=== PATIENT | female | born 1930 ===

== ENCOUNTER 2016-12-26 21:51 | Emergency (ER) | payer MEDICARE, MEDICAID ==
[2016-12-26 22:04] VITALS: BP 125/56; PULSE 67; RESP 16; TEMP 98.3; O2SAT 100
--- NOTE | 2016-12-26 22:27 | ED PDOC ---
HPI: Trauma/Fall - HPI Time Seen by Provider: 12/26/16 22:07 Chief Complaint (Nursing): Back Pain Chief Complaint (Provider): fall History Per: Patient, EMS, Family Injury Occurred (Timing): Just Before Arrival Additional History Per: Patient, Family Additional Complaint(s): 86 y/o female history of dementia, hypertension brought in by EMS from [facility] for eval of fall prior to arrival. As per daughter, she was informed that patient tried to walk back to her room by the nurses station and fell, hitting back of head. No LOC. Patient complaining of pain to back of head, and EMS noted patient to be complaining of pain to back during ambulance ride. Denies dizziness, nausea/vomiting, extremity numbness/weakness , chest pain, shortness of breath, leg pain. Past Medical History Reviewed: Historical Data, Nursing Documentation, Vital Signs Vital Signs: Last Vital Signs Temp 98.3 F 12/26/16 22:00 Pulse 67 12/26/16 22:00 Resp 16 12/26/16 22:00 BP 125/56 L 12/26/16 22:00 Pulse Ox 100 12/26/16 22:00 - Medical History PMH: Alzheimer's Disease, Arthritis, Dementia, HTN Denies: Anemia, Anxiety, Bipolar Disorder, Crohn's Disease, Depression, Diverticulitis, Fractures, Gastritis, Gall Bladder Disease, HIV, Hyperthyroidism , Hypothyroidism, Kidney Stones, Migraine, Osteoporosis, Pancreatitis, Paranoia , Post Traumatic Stress Disorder, Chronic Kidney Disease, Rheumatoid Arthritis, Schizophrenia, Seizures, Sickle Cell Disease, Sexually Transmitted Disease, TIA - Surgical History Surgical History: Denies: Appendectomy, CABG, Carotid Endarterectomy, Cholecystectomy, Coronary Stent, Tonsillectomy - Family History Family History: States: Unknown Family Hx - Home Medications Home Medications: Ambulatory Orders Medication Instructions Recorded Allopurinol [Zyloprim] 100 mg PO BID 11/15/16 Donepezil [Aricept] 10 mg PO HS 11/15/16 Ergocalciferol (Vitamin D2) 50,000 unit PO SUN 11/15/16 [Vitamin D2] Ferrous Sulfate [Feosol] 325 mg PO BID 11/15/16 Galantamine HBr [Galantamine ER] 16 mg PO DAILY 11/15/16 Lisinopril [Zestril] 2.5 mg PO DAILY 11/15/16 Memantine HCl [Namenda Xr] 28 mg PO DAILY 11/15/16 Sertraline [Zoloft] 50 mg PO DAILY 11/15/16 Sevelamer [Renagel] 400 mg PO BID 12/26/16 - Allergies Allergies/Adverse Reactions: Allergies Allergy/AdvReac Type Severity Reaction Status Date / Time No Known Allergies Allergy Verified 12/26/16 22:45 Review of Systems ROS Statement: Except As Marked, All Systems Reviewed And Found Negative Musculoskeletal: Positive for: Back Pain Neurological: Positive for: Headache Physical Exam - Reviewed Nursing Documentation Reviewed: Yes Vital Signs Reviewed: Yes - Physical Exam Appears: Positive for: Well, Non-toxic, No Acute Distress Head Exam: Positive for: NORMAL INSPECTION. Negative for: ATRAUMATIC (tender to palpate left parietal scalp; no skin break, hematoma noted) Eye Exam: Positive for: Normal appearance, EOMI, PERRL ENT: Positive for: Normal ENT Inspection Cardiovascular/Chest: Positive for: Regular Rate, Rhythm Respiratory: Positive for: Normal Breath Sounds Gastrointestinal/Abdominal: Positive for: Normal Exam Back: Positive for: Vertebral Tenderness (upper tspine. No bony deformity. No lspine tenderness), Muscle Spasm (left tspine paraspinals). Negative for: L CVA Tenderness, R CVA Tenderness, Decreased ROM Extremity: Positive for: Normal ROM. Negative for: Tenderness, Deformity, Swelling Neurologic/Psych: Positive for: Alert, Oriented (x2;baseline as per daughter) - ECG O2 Sat by Pulse Oximetry: 100 - Progress ED Course And Treament: CT head, CT cspine, CT chest, PO tylenol EXAM: CT Head Without Intravenous Contrast CLINICAL HISTORY: 86 years old, female; Injury or trauma; Fall; Initial encounter; Concussion / head injury; Consciousness not specified; Injury date: 12-26-2016; Additional info: Fall, head injury. Sent phy. Doc. With request TECHNIQUE: Axial computed tomography images of the head/brain without intravenous contrast. This CT exam was performed using one or more of the following dose reduction techniques: automated exposure control, adjustment of the mA and/or kV according to patient size, and/or use of iterative reconstruction technique. Coronal and sagittal reformatted images were created and reviewed. COMPARISON: CT - HEAD W/O CONTRAST 11/15/2016 1:41:52 PM FINDINGS: Brain: No acute intracranial hemorrhage. Age-appropriate periventricular white matter disease. No edema. Ventricles: Age-appropriate ventriculomegaly. Bones: No acute displaced fracture. Sinuses: Unremarkable as visualized. No acute sinusitis. Mastoid air cells: Unremarkable as visualized. No mastoid effusion. IMPRESSION: No acute intracranial hemorrhage, or suspicious mass effect. EXAM: CT Cervical Spine Without Intravenous Contrast CLINICAL HISTORY: 86 years old, female; Injury or trauma; Fall; Initial encounter; Blunt trauma; Injury date: 12-26-2016; Additional info: Fall. Sent phy. Doc. TECHNIQUE: Axial computed tomography images of the cervical spine without intravenous contrast. This CT exam was performed using one or more of the following dose reduction techniques : automated exposure control, adjustment of the mA and/or kV according to patient size, and/ or use of iterative reconstruction technique. Coronal and sagittal reformatted images were created and reviewed. COMPARISON: CT - CERVICAL SPINE W/O CONTRAST 11/15/2016 1:45:00 PM FINDINGS: Vertebrae: No acute fracture. Alignment: Preservation of the curvature of the cervical spine. Discs/spinal canal/neural foramina: No acute findings. Moderate degenerative series, with osteophyte formation, disc space narrowing, endplate changes and vacuum phenomenon. Thickening of the transverse ligament is suspected with accompanying synovial hypertrophy. Soft tissues: Symmetric Lung apices: The visualized lung apices are clear. IMPRESSION: Degenerative disease, without acute fracture EXAM: CT Chest Without Intravenous Contrast CLINICAL HISTORY: 86 years old, female; Injury or trauma; Fall; Initial encounter; Blunt trauma ( contusions or hematomas); Injury date: 12-26-2016; Additional info: Fall, mid/left-sided back pain TECHNIQUE: Axial computed tomography images of the chest without intravenous contrast. This CT exam was performed using one or more of the following dose reduction techniques: automated exposure control, adjustment of the mA and/or kV according to patient size, and/or use of iterative reconstruction technique. Coronal and sagittal reformatted images were created and reviewed. COMPARISON: No relevant prior studies available. FINDINGS: Lungs: No mass. No consolidation. Pleural spaces: No significant effusion. No pneumothorax or hemothorax. Heart: Cardiomegaly, without significant pericardial effusion. Vasculature: The great vessels are intact. No aneurysmal dilatation of the thoracic aortic. Calcified atherosclerotic disease. Lymph nodes: Scattered lymph nodes within the mediastinum and supraclavicular region, all nonpathologically enlarged, a nonspecific finding. Bones: No acute fractures within either the sternum, ribs or thoracic vertebral bodies. No scapular or clavicular fractures are noted. A moderate hiatal hernia is present, with herniation of the gastric fundus into the left hemithorax with adjacent compressive atelectasis. IMPRESSION: No significant intrathoracic injury, as detailed above. Multiple nonacute findings, as detailed above. On re-eval, patient escorted to bedside commode without complaints of pain. Patient stable for discharge and to be transported back to detention. Advised Tylenol/Ibuprofen PRN pain. Return to ED for worsening/concerning symptoms. Disposition - Clinical Impression Clinical Impression: Head injury, Fall in elderly patient, Back pain - Patient ED Disposition Is Patient to be Admitted: No Counseled Patient/Family Regarding: Studies Performed, Diagnosis, Need For Followup - Disposition Disposition: Routine/Home Disposition Time: 01:04 Condition: STABLE Additional Instructions: Take Tylenol or Ibuprofen as directed, as needed for pain. Return to ED for worsening/concerning symptoms. Instructions: Fall Prevention for Older Adults (ED), Head Injury (ED), Back Pain (ED)
--- NOTE | 2016-12-26 23:41 | CT ---
EXAM: CT Head Without Intravenous Contrast CLINICAL HISTORY: 86 years old, female; Injury or trauma; Fall; Initial encounter; Concussion / head injury; Consciousness not specified; Injury date: 12-26-2016; Additional info: Fall, head injury. Sent phy. Doc. With request TECHNIQUE: Axial computed tomography images of the head/brain without intravenous contrast. This CT exam was performed using one or more of the following dose reduction techniques: automated exposure control, adjustment of the mA and/or kV according to patient size, and/or use of iterative reconstruction technique. Coronal and sagittal reformatted images were created and reviewed. COMPARISON: CT - HEAD W/O CONTRAST 11/15/2016 1:41:52 PM FINDINGS: Brain: No acute intracranial hemorrhage. Age-appropriate periventricular white matter disease. No edema. Ventricles: Age-appropriate ventriculomegaly. Bones: No acute displaced fracture. Sinuses: Unremarkable as visualized. No acute sinusitis. Mastoid air cells: Unremarkable as visualized. No mastoid effusion. IMPRESSION: No acute intracranial hemorrhage, or suspicious mass effect.
--- NOTE | 2016-12-26 23:50 | CT ---
EXAM: CT Cervical Spine Without Intravenous Contrast CLINICAL HISTORY: 86 years old, female; Injury or trauma; Fall; Initial encounter; Blunt trauma; Injury date: 12-26-2016; Additional info: Fall. [facility] phy. Doc. TECHNIQUE: Axial computed tomography images of the cervical spine without intravenous contrast. This CT exam was performed using one or more of the following dose reduction techniques: automated exposure control, adjustment of the mA and/or kV according to patient size, and/or use of iterative reconstruction technique. Coronal and sagittal reformatted images were created and reviewed. COMPARISON: CT - CERVICAL SPINE W/O CONTRAST 11/15/2016 1:45:00 PM FINDINGS: Vertebrae: No acute fracture. Alignment: Preservation of the curvature of the cervical spine. Discs/spinal canal/neural foramina: No acute findings. Moderate degenerative series, with osteophyte formation, disc space narrowing, endplate changes and vacuum phenomenon. Thickening of the transverse ligament is suspected with accompanying synovial hypertrophy. Soft tissues: Symmetric Lung apices: The visualized lung apices are clear. IMPRESSION: Degenerative disease, without acute fracture.
--- NOTE | 2016-12-26 23:55 | CT ---
EXAM: CT Chest Without Intravenous Contrast CLINICAL HISTORY: 86 years old, female; Injury or trauma; Fall; Initial encounter; Blunt trauma (contusions or hematomas); Injury date: 12-26-2016; Additional info: Fall, mid/left-sided back pain TECHNIQUE: Axial computed tomography images of the chest without intravenous contrast. This CT exam was performed using one or more of the following dose reduction techniques: automated exposure control, adjustment of the mA and/or kV according to patient size, and/or use of iterative reconstruction technique. Coronal and sagittal reformatted images were created and reviewed. COMPARISON: No relevant prior studies available. FINDINGS: Lungs: No mass. No consolidation. Pleural spaces: No significant effusion. No pneumothorax or hemothorax. Heart: Cardiomegaly, without significant pericardial effusion. Vasculature: The great vessels are intact. No aneurysmal dilatation of the thoracic aortic. Calcified atherosclerotic disease. Lymph nodes: Scattered lymph nodes within the mediastinum and supraclavicular region, all non-pathologically enlarged, a nonspecific finding. Bones: No acute fractures within either the sternum, ribs or thoracic vertebral bodies. No scapular or clavicular fractures are noted. A moderate hiatal hernia is present, with herniation of the gastric fundus into the left hemithorax with adjacent compressive atelectasis. IMPRESSION: No significant intrathoracic injury, as detailed above. Multiple nonacute findings, as detailed above.
== END 2016-12-27 01:30 | disposition home or self-care (01) ==
LOC: H.ER 21:51
DX: S09.90XA Unspecified injury of head, initial encounter (principal); M54.9 Dorsalgia, unspecified; W19.XXXA Unspecified fall, initial encounter; Y92.198 Other place in other specified residential institution as the place of occurrence of the external cause

== ENCOUNTER 2017-04-20 04:03 | Emergency (ER) | payer MEDICARE, MEDICAID ==
[2017-04-20 04:26] VITALS: RESP 16
--- NOTE | 2017-04-20 04:36 | ED PDOC ---
HPI: Trauma/Fall - HPI Time Seen by Provider: 04/20/17 04:08 Chief Complaint (Nursing): Trauma Chief Complaint (Provider): Referral from [facility] History Per: Patient History/Exam Limitations: other (dementia) Location Of Injury: Posterior: Head Additional History Per: EMS, [facility] Additional Complaint(s): 87 y/o female was brought to the ED by EMS with a history of depression, gout, recurrent falls, and dementia. She was referred after witnessed fall from [facility] in [facility]. Patient fell, hit her head, but did not lose consciousness. There is noted swelling and slight bleeding to back of head. PMD: Joanna Araujo Casanova Past Medical History Vital Signs: Last Vital Signs Temp 97.9 F 04/20/17 04:09 Pulse 63 04/20/17 04:09 Resp 16 04/20/17 04:09 BP 127/65 04/20/17 04:09 Pulse Ox 100 04/20/17 04:09 - Medical History PMH: Alzheimer's Disease, Arthritis, Dementia, Depression, HTN Denies: Anemia, Anxiety, Bipolar Disorder, Crohn's Disease, Diverticulitis, Fractures, Gastritis, Gall Bladder Disease, HIV, Hyperthyroidism, Hypothyroidism , Kidney Stones, Migraine, Osteoporosis, Pancreatitis, Paranoia, Post Traumatic Stress Disorder, Chronic Kidney Disease, Rheumatoid Arthritis, Schizophrenia, Seizures, Sickle Cell Disease, Sexually Transmitted Disease, TIA Other PMH: Gout - Surgical History Surgical History: Denies: Appendectomy, CABG, Carotid Endarterectomy, Cholecystectomy, Coronary Stent, Tonsillectomy - Family History Family History: States: Unknown Family Hx - Living Arrangements Living Arrangements: [facility] - Social History Current smoker - smoking cessation education provided: No Alcohol: None Drugs: Denies - Home Medications Home Medications: Ambulatory Orders Medication Instructions Recorded Allopurinol [Zyloprim] 100 mg PO BID 11/15/16 Donepezil [Aricept] 10 mg PO HS 11/15/16 Ergocalciferol (Vitamin D2) 50,000 unit PO SUN 11/15/16 [Vitamin D2] Ferrous Sulfate [Feosol] 325 mg PO BID 11/15/16 Galantamine HBr [Galantamine ER] 16 mg PO DAILY 11/15/16 Lisinopril [Zestril] 2.5 mg PO DAILY 11/15/16 Memantine HCl [Namenda Xr] 28 mg PO DAILY 11/15/16 Sertraline [Zoloft] 50 mg PO DAILY 11/15/16 Sevelamer [Renagel] 400 mg PO BID 12/26/16 - Allergies Allergies/Adverse Reactions: Allergies Allergy/AdvReac Type Severity Reaction Status Date / Time No Known Allergies Allergy Verified 12/26/16 22:45 Review of Systems Review Of Systems: ROS cannot be obtained secondary to pt's inabilty to answer questions. Physical Exam - Reviewed Nursing Documentation Reviewed: Yes Vital Signs Reviewed: Yes - Physical Exam Appears: Positive for: Non-toxic, No Acute Distress Head Exam: Positive for: NORMOCEPHALIC. Negative for: ATRAUMATIC Skin: Positive for: Normal Color (with abrasion to occiput with trace dry blood and surrounding mild edema), Warm, Dry Eye Exam: Positive for: EOMI, Normal appearance, PERRL ENT: Positive for: Normal ENT Inspection Neck: Positive for: Normal, Painless ROM Cardiovascular/Chest: Positive for: Regular Rate, Rhythm. Negative for: Murmur Respiratory: Positive for: Normal Breath Sounds. Negative for: Respiratory Distress Gastrointestinal/Abdominal: Positive for: Normal Exam, Bowel Sounds, Soft. Negative for: Tenderness Back: Positive for: Normal Inspection. Negative for: L CVA Tenderness, R CVA Tenderness, Vertebral Tenderness Extremity: Positive for: Normal ROM. Negative for: Pedal Edema, Deformity Neurologic/Psych: Positive for: Alert (unable to answer questions) - ECG O2 Sat by Pulse Oximetry: 100 (RA) Pulse Ox Interpretation: Normal Medical Decision Making Medical Decision Making: Time: 4:15 Initial Impression: 87 y/o female with status post head injury post fall Initial Plan: --CT Head w/o Contrast --Tylenol --Adacel Time: 5:06 CT HEAD W/O CONTRAST FINDINGS: Brain: Cerebral and cerebellar volume loss. Patchy hypodensity is seen in the periventricular and subcortical white matter. No hemorrhage. No edema. Ventricles: Prominent ventricles. Bones/joints: Unremarkable. No acute fracture. Soft tissues: Unremarkable. Sinuses: Left sphenoid sinus mucus retention cysts and/or polyps. Mastoid air cells: Unremarkable. No mastoid effusion. IMPRESSION: No evidence of an acute intracranial hemorrhage, midline shift or mass effect is identified. Time: 6:00 Clinical Impression: Head injury, scalp abrasion --Patient is medically stable for discharge. --Counseling was provided and all questions were answered regarding diagnosis and need for follow up with PMD. There is agreement to discharge plan. Return if symptoms persist or worsen. Scribe Attestation: Documented by Thony Tierney, acting as a scribe for Richard Holman MD Provider Scribe Attestation: All medical record entries made by the Scribe were at my direction and personally dictated by me. I have reviewed the chart and agree that the record accurately reflects my personal performance of the history, physical exam, medical decision making, and the department course for this patient. I have also personally directed, reviewed, and agree with the discharge instructions and disposition. Disposition - Clinical Impression Clinical Impression: Fall in elderly patient, Head injury, Abrasion - Patient ED Disposition Is Patient to be Admitted: No Counseled Patient/Family Regarding: Studies Performed, Diagnosis, Need For Followup - Disposition Disposition: Routine/Home Disposition Time: 06:00 Condition: STABLE Instructions: Fall Prevention for Older Adults (ED), Head Injury (ED) Forms: [employer] (Hungarian)
--- NOTE | 2017-04-20 05:06 | CT ---
EXAM: CT Head Without Intravenous Contrast CLINICAL HISTORY: 87 years old, female; Injury or trauma; Fall; Initial encounter; Abrasion; Scalp; Additional info: Head injury TECHNIQUE: Axial computed tomography images of the head/brain without intravenous contrast. All CT scans at this facility use one or more dose reduction techniques, viz.: automated exposure control; ma/kV adjustment per patient size (including targeted exams where dose is matched to indication; i.e. head); or iterative reconstruction technique. 300 images are submitted.Sagittal and coronal MPR reformatted images are submitted. COMPARISON: No relevant prior studies available. FINDINGS: Brain: Cerebral and cerebellar volume loss. Patchy hypodensity is seen in the periventricular and subcortical white matter. No hemorrhage. No edema. Ventricles: Prominent ventricles. Bones/joints: Unremarkable. No acute fracture. Soft tissues: Unremarkable. Sinuses: Left sphenoid sinus mucus retention cysts and/or polyps. Mastoid air cells: Unremarkable. No mastoid effusion. IMPRESSION: No evidence of an acute intracranial hemorrhage, midline shift or mass effect is identified.
[2017-04-20 10:42] VITALS: BP 132/61; PULSE 68; TEMP 98; O2SAT 98
== END 2017-04-20 10:52 ==
LOC: H.ER 04:03
DX: S00.01XA Abrasion of scalp, initial encounter (principal); W19.XXXA Unspecified fall, initial encounter; Y92.129 Unspecified place in nursing home as the place of occurrence of the external cause; Z23 Encounter for immunization; Z91.81 History of falling; F03.90 Unspecified dementia, unspecified severity, without behavioral disturbance, psychotic disturbance, mood disturbance, and anxiety; G30.9 Alzheimer's disease, unspecified; I10 Essential (primary) hypertension; M10.9 Gout, unspecified

== ENCOUNTER 2017-08-08 09:44 | Observation (INO) | payer MEDICARE, MEDICAID ==
--- NOTE | 2017-08-08 12:13 | ED PDOC ---
HPI: General Adult Time Seen by Provider: 08/08/17 12:10 Chief Complaint (Nursing): Trauma Chief Complaint (Provider): trauma History Per: Patient Additional Complaint(s): 87yo F in ED for eval of injury to head sustained today while walking-pt fell backward injuring her head/neck-pt has dementia. in ED pt yelling attempting to get out of bed. risk to self for further injuries. no LOC. no vomiting. abrasion to back of head Past Medical History Reviewed: Historical Data, Nursing Documentation, Vital Signs Vital Signs: Last Vital Signs Temp 98.0 F 08/08/17 09:48 Pulse 82 08/08/17 09:48 Resp 20 08/08/17 09:48 BP 122/65 08/08/17 09:48 Pulse Ox 97 08/08/17 12:25 - Medical History PMH: Alzheimer's Disease, Arthritis, Dementia, Depression, HTN Denies: Anemia, Anxiety, Bipolar Disorder, Crohn's Disease, Diverticulitis, Fractures, Gastritis, Gall Bladder Disease, HIV, Hyperthyroidism, Hypothyroidism , Kidney Stones, Migraine, Osteoporosis, Pancreatitis, Paranoia, Post Traumatic Stress Disorder, Chronic Kidney Disease, Rheumatoid Arthritis, Schizophrenia, Seizures, Sickle Cell Disease, Sexually Transmitted Disease, TIA - Surgical History Surgical History: Denies: Appendectomy, CABG, Carotid Endarterectomy, Cholecystectomy, Coronary Stent, Tonsillectomy - Family History Family History: States: Unknown Family Hx - Home Medications Home Medications: Ambulatory Orders Medication Instructions Recorded Allopurinol [Zyloprim] 100 mg PO BID 11/15/16 Donepezil [Aricept] 10 mg PO HS 11/15/16 Ergocalciferol (Vitamin D2) 50,000 unit PO SUN 11/15/16 [Vitamin D2] Ferrous Sulfate [Feosol] 325 mg PO BID 11/15/16 Galantamine HBr [Galantamine ER] 16 mg PO DAILY 11/15/16 Lisinopril [Zestril] 2.5 mg PO DAILY 11/15/16 Memantine HCl [Namenda Xr] 28 mg PO DAILY 11/15/16 Sertraline [Zoloft] 50 mg PO DAILY 11/15/16 Sevelamer [Renagel] 400 mg PO BID 12/26/16 - Allergies Allergies/Adverse Reactions: Allergies Allergy/AdvReac Type Severity Reaction Status Date / Time No Known Allergies Allergy Verified 12/26/16 22:45 Review of Systems ROS Statement: Except As Marked, All Systems Reviewed And Found Negative Skin: Positive for: Lesions Physical Exam - Reviewed Nursing Documentation Reviewed: Yes Vital Signs Reviewed: Yes - Physical Exam Appears: Positive for: Non-toxic, No Acute Distress. Negative for: Well Head Exam: Positive for: NORMOCEPHALIC. Negative for: ATRAUMATIC (abrasion/ hematoma noted. ) Skin: Positive for: Normal Color, Warm, DRY Eye Exam: Positive for: EOMI, Normal appearance, PERRL ENT: Positive for: Normal ENT Inspection Neck: Positive for: Normal, Painless ROM Cardiovascular/Chest: Positive for: Regular Rate, Rhythm Respiratory: Positive for: CNT, Normal Breath Sounds Neurologic/Psych: Positive for: Alert, Oriented, Other (very aggitated) - Laboratory Results Result Diagrams: 08/08/17 13:05 - ECG O2 Sat by Pulse Oximetry: 97 - CT Scan/US head Other Rad Studies (CT/US): Radiology Report Reviewed ((+) subdural hematoma) - Progress ED Course And Treament: Orders Category Date Time Status CERVICAL SPINE W/O CONTRAST [CT] Stat CT 08/08/17 10:49 Ordered HEAD W/O CONTRAST [CT] Stat CT 08/08/17 10:49 Ordered LORazepam [Ativan] Med 08/08/17 10:56 Discontinued 1 mg IM STAT STA LORazepam [Ativan] Med 08/08/17 11:00 Discontinued 2 mg .ROUTE .STK-MED ONE neurosurgery consulted 12:20pm MD Jade made area pt will be admitted to medical service vocational coordinator-MD Marlene Medical Decision Making Medical Decision Making: consulted Rip Og, suggests repat CT of head in q4h. Pt will be admitted under Marlene SANTO medicine vocational coordinator for subdural hematoma/fall injury. Disposition - Clinical Impression Clinical Impression: Fall, Subdural hematoma - Patient ED Disposition Is Patient to be Admitted: Yes - Disposition Disposition Time: 13:37 Condition: STABLE - Pt Status Changed To: Hospital Disposition Of: Inpatient - Admit Certification Admit to Inpatient:: After my assessment, the patient will require hospitalization for at least two midnights. This is because of the severity of symptoms shown, intensity of services needed, and/or the medical risk in this patient being treated as an outpatient.
--- NOTE | 2017-08-08 12:18 | CT ---
PROCEDURE: CT HEAD WITHOUT CONTRAST. HISTORY: headache COMPARISON: CT head dated 04/20/2017. TECHNIQUE: Axial computed tomography images were obtained through the head/brain without intravenous contrast. Radiation dose: Total exam DLP = 746 mGy-cm. This CT exam was performed using one or more of the following dose reduction techniques: Automated exposure control, adjustment of the mA and/or kV according to patient size, and/or use of iterative reconstruction technique. FINDINGS: HEMORRHAGE: Thin layer subdural hemorrhage layering along the falx cerebri. BRAIN: No mass effect or edema. Cerebral atrophy. Mild periventricular white matter chronic microvascular ischemic changes. Left basal ganglia chronic lacunar infarctions. VENTRICLES: Unremarkable. No hydrocephalus. CALVARIUM: Unremarkable. PARANASAL SINUSES: Unremarkable as visualized. No significant inflammatory changes. MASTOID AIR CELLS: Bilateral frontal and ethmoid air cell opacification. OTHER FINDINGS: High left parietal/ vertex scalp swelling/hematoma. IMPRESSION: Thin layer subdural hemorrhage layering along the falx cerebri. Findings conveyed to RADHA Chaney by Dr. Cody 12:13 p.m. on 08/08/2017.
--- NOTE | 2017-08-08 12:21 | CT ---
PROCEDURE: CT Cervical Spine without contrast HISTORY: Fall/trauma COMPARISON: CT cervical spine dated 12/26/2017. TECHNIQUE: Axial computed tomography images were obtained of the cervical spine without the use of intravenous contrast. Coronal and sagittal reformatted images were created and reviewed. Radiation dose: Total exam DLP = 620.4 mGy-cm. This CT exam was performed using one or more of the following dose reduction techniques: Automated exposure control, adjustment of the mA and/or kV according to patient size, and/or use of iterative reconstruction technique. FINDINGS: VERTEBRAE: No fracture. Reversal of the normal lordosis. No destructive bony lesion. DISCS/SPINAL CANAL/NEURAL FORAMINA: Stable multilevel degenerative changes characterized by disc space narrowing and osteophytic ridging. PARASPINAL SOFT TISSUES: Unremarkable. OTHER FINDINGS: Stable appearance of enlarged, heterogeneous left thyroid lobe. Stable prominent bilateral cervical lymph nodes. IMPRESSION: No acute fracture. Stable multilevel degenerative changes. Stable appearance of enlarged, heterogeneous left thyroid lobe and bilateral prominent cervical lymph nodes. Findings conveyed to RADHA Chaney by Dr. Cody at 12:14 p.m. on 08/08/2017.
--- NOTE | 2017-08-08 13:03 | RAD ---
PROCEDURE: CHEST RADIOGRAPH, 1 VIEW HISTORY: medical COMPARISON: Chest radiograph dated 11/15/2016. FINDINGS: LUNGS: Clear. PLEURA: No pneumothorax or pleural fluid seen. CARDIOVASCULAR: Atherosclerotic aortic calcifications. Cardiomediastinal silhouette unchanged. Heavy mitral annular calcification redemonstrated. OSSEOUS STRUCTURES: Unchanged. VISUALIZED UPPER ABDOMEN: Normal. OTHER FINDINGS: Large hiatal hernia redemonstrated. IMPRESSION: No active disease. Large hiatal hernia.
[2017-08-08 13:07] LABS: SQUAMOUS EPITHIAL < 1 /hpf (0-5); URINE BACTERIA OCC (<OCC); URINE BILIRUBIN NEGATIVE (NEGATIVE); URINE BLOOD NEGATIVE (NEGATIVE); URINE CLARITY SLIGHTY-CLOUDY (Clear); URINE COLOR YELLOW (YELLOW); URINE GLUCOSE (UA) NEG (Normal); URINE LEUKOCYTE ESTERASE TRACE Leu/uL (Negative); URINE NITRATE NEGATIVE (NEGATIVE); URINE PROTEIN NEGATIVE (NEGATIVE); URINE UROBILINOGEN 0.2-1.0 mg/dL (0.2-1.0)
[2017-08-08 13:24] LABS: BASO % 0.2 % (0.0-2.0); EOS # 0.1 K/uL (0.0-0.7); HEMOGLOBIN 12.1 g/dL (12.0-16.0); LYMPH # 1.5 K/uL (1.0-4.3); LYMPH % 21.6 % (20.0-40.0); MEAN CELL VOLUME 93.2 fl (81.0-99.0); MEAN CORPUSCULAR HEMOGLOBIN 30.4 pg (27.0-31.0); MEAN CORPUSCULAR HGB CONC 32.6 g/dL (33.0-37.0); MEAN PLATELET VOLUME 8.9 fl (7.2-11.7); MONO # 0.7 K/uL (0.0-0.8); MONO % 9.4 % (0.0-10.0); NEUT # 4.8 K/uL (1.8-7.0); NEUT % 67.8 % (50.0-75.0); RBC 3.97 Mil/uL (3.80-5.20); RED CELL DISTRIBUTION WIDTH 15.1 % (11.5-14.5); WHITE BLOOD COUNT 7.1 K/uL (4.8-10.8)
[2017-08-08 13:30] LABS: PARTIAL THROMBOPLASTIN TIME 28.3 Seconds (25.6-37.1); PROTHROMBIN TIME 11.1 Seconds (9.8-13.1)
[2017-08-08 14:09] LABS: ALBUMIN 3.6 g/dL (3.5-5.0); CALCIUM 10.1 mg/dL (8.4-10.2)
--- NOTE | 2017-08-08 17:33 | CP.PCM.HP ---
History of Present Illness - History of Present Illness History of Present Illness: 87YR OLD FEMALE WHO SUSTAINED A FALL IN THE CARE HOME AND HAD TRAUMA TO THE HEAD.SHE HAS A HISTORY OF DEMENTIA AND IS ATTEMPTING TO GET OUT OF BED.SHE IS CONFUSED AND DISORIENTED.CT SCAN OF HEAD IS REMARKABLE FOR INTRACRANIAL HEORRHAGE. NEUROSURGICAL INTERVENTION ALREADY REQUESTED AND SUGGEST TO REPEAT CT SCAN OF HEAD IN 4 HRS. Present on Admission - Present on Admission Any Indicators Present on Admission: No History of DVT/PE: No History of Uncontrolled Diabetes: No Urinary Catheter: No Decubitus Ulcer Present: No History Surgical Site Infection Following: None Past Patient History - Infectious Disease Hx of Infectious Diseases: None - Past Medical History & Family History Past Medical History?: Yes - Past Social History Smoking Status: Former Smoker - CARDIAC Hx Hypertension: Yes - PULMONARY Hx Respiratory Disorders: No - NEUROLOGICAL Hx Alzheimer's Disease: Yes Hx Dementia: Yes Hx Migraine: No Hx Seizures: No Hx Transient Ischemic Attacks (TIA): No - HEENT Hx HEENT Problems: No - RENAL Hx Chronic Kidney Disease: No - ENDOCRINE/METABOLIC Hx Hyperthyroidism: No Hx Hypothyroidism: No - HEMATOLOGICAL/ONCOLOGICAL Hx Anemia: No Hx Human Immunodeficiency Virus (HIV): No Hx Sickle Cell Disease: No - INTEGUMENTARY Hx Dermatological Problems: No Other/Comment: skin cancer nose removed - MUSCULOSKELETAL/RHEUMATOLOGICAL Hx Arthritis: Yes Hx Fractures: No Hx Osteoporosis: No Hx Rheumatoid Arthritis: No - GASTROINTESTINAL Hx Crohn's Disease: No Hx Diverticulitis: No Hx Gall Bladder Disease: No Hx Gastritis: No Hx Pancreatitis: No - GENITOURINARY/GYNECOLOGICAL Hx Sexually Transmitted Disorders: No - PSYCHIATRIC Hx Anxiety: No Hx Bipolar Disorder: No Hx Depression: Yes Hx Paranoia: No Hx Post Traumatic Stress Disorder: No Hx Schizophrenia: No - SURGICAL HISTORY Hx Appendectomy: No Hx Carotid Endarterectomy: No Hx Cholecystectomy: No Hx Coronary Artery Bypass Graft: No Hx Coronary Stent: No Hx Tonsillectomy: No - ANESTHESIA Hx Anesthesia: No Meds Allergies/Adverse Reactions: Allergies Allergy/AdvReac Type Severity Reaction Status Date / Time No Known Allergies Allergy Verified 12/26/16 22:45 Physical Exam - Constitutional Appears: Agitated, Confused - Head Exam Head Exam: ATRAUMATIC, NORMAL INSPECTION, NORMOCEPHALIC Additional comments: SCALP HEMATOMA AND ABRASION - Expanded Head Exam Expanded Head Exam: Abrasion - Eye Exam Eye Exam: EOMI, Normal appearance, PERRL Pupil Exam: NORMAL ACCOMODATION, PERRL - ENT Exam ENT Exam: Mucous Membranes Moist, Normal Exam - Neck Exam Neck exam: Positive for: Normal Inspection - Respiratory Exam Respiratory Exam: Clear to Auscultation Bilateral, NORMAL BREATHING PATTERN - Cardiovascular Exam Cardiovascular Exam: REGULAR RHYTHM - GI/Abdominal Exam GI & Abdominal Exam: Normal Bowel Sounds, Soft. absent: Tenderness - Rectal Exam Rectal Exam: NORMAL INSPECTION - Extremities Exam Extremities exam: Positive for: normal inspection - Back Exam Back exam: NORMAL INSPECTION - Neurological Exam Neurological exam: Alert, CN II-XII Intact, Reflexes Normal - Psychiatric Exam Psychiatric exam: Agitated - Skin Skin Exam: Dry, Intact, Normal Color, Warm Results - Vital Signs Recent Vital Signs: Last Vital Signs Temp 98.1 F 08/08/17 16:22 Pulse 84 08/08/17 16:22 Resp 16 08/08/17 16:22 BP 139/86 08/08/17 16:22 Pulse Ox 97 08/08/17 16:22 - Labs Result Diagrams: 08/08/17 13:05 08/08/17 13:05 Labs: Laboratory Results - last 24 hr 08/08/17 08/08/17 08/08/17 12:51 13:05 13:05 WBC 7.1 RBC 3.97 Hgb 12.1 Hct 37.0 MCV 93.2 MCH 30.4 MCHC 32.6 L RDW 15.1 H Plt Count 169 MPV 8.9 Neut % (Auto) 67.8 Lymph % (Auto) 21.6 Rains % (Auto) 9.4 Eos % (Auto) 1.0 Baso % (Auto) 0.2 Neut # 4.8 Lymph # 1.5 Rains # 0.7 Eos # 0.1 Baso # 0.0 PT INR APTT Sodium 140 Potassium 4.5 Chloride 105 Carbon Dioxide 26 Anion Gap 14 BUN 37 H Creatinine 1.4 H Est GFR ( Amer) 43 Est GFR (Non-Af Amer) 35 Random Glucose 97 Calcium 10.1 Total Bilirubin 0.4 AST 26 ALT 28 Alkaline Phosphatase 93 Total Protein 7.1 Albumin 3.6 Globulin 3.5 Albumin/Globulin Ratio 1.0 Urine Color Yellow Urine Clarity Slighty-cloudy Urine pH 6.0 Ur Specific [place] 1.014 Urine Protein Negative Urine Glucose (UA) Neg Urine Ketones Negative Urine Blood Negative Urine Nitrate Negative Urine Bilirubin Negative Urine Urobilinogen 0.2-1.0 Ur Leukocyte Esterase Trace Urine RBC (Auto) 3 Urine Microscopic WBC 3 Ur Squamous Epith Cells < 1 Urine Bacteria Occ H Blood Type Antibody Screen BBK History Checked 08/08/17 08/08/17 13:05 13:05 WBC RBC Hgb Hct MCV MCH MCHC RDW Plt Count MPV Neut % (Auto) Lymph % (Auto) Rains % (Auto) Eos % (Auto) Baso % (Auto) Neut # Lymph # Rains # Eos # Baso # PT 11.1 INR 1.0 APTT 28.3 Sodium Potassium Chloride Carbon Dioxide Anion Gap BUN Creatinine Est GFR ( Amer) Est GFR (Non-Af Amer) Random Glucose Calcium Total Bilirubin AST ALT Alkaline Phosphatase Total Protein Albumin Globulin Albumin/Globulin Ratio Urine Color Urine Clarity Urine pH Ur Specific [place] Urine Protein Urine Glucose (UA) Urine Ketones Urine Blood Urine Nitrate Urine Bilirubin Urine Urobilinogen Ur Leukocyte Esterase Urine RBC (Auto) Urine Microscopic WBC Ur Squamous Epith Cells Urine Bacteria Blood Type A POSITIVE Antibody Screen Negative BBK History Checked No verified bt Assessment & Plan - Assessment and Plan (Free Text) Assessment: INTRACRANIAL BLEED HEAD TRAUMA ACCIDENTAL FALL DEMENTIA HYPERTENSION Plan: NEUROSURGERY EVALUATION NEUROCHECKS 07/29 NURSING CARE
--- NOTE | 2017-08-08 17:45 | CT ---
PROCEDURE: CT HEAD WITHOUT CONTRAST. HISTORY: re-eval of subdural hematoma COMPARISON: Unenhanced head CT 08/08/2017 11:41 a.m.. TECHNIQUE: Axial computed tomography images were obtained through the head/brain without intravenous contrast. Radiation dose: Total exam DLP = 973.17 mGy-cm. This CT exam was performed using one or more of the following dose reduction techniques: Automated exposure control, adjustment of the mA and/or kV according to patient size, and/or use of iterative reconstruction technique. FINDINGS: HEMORRHAGE: Trace subdural hematoma appears thinner at the inferior margins of the falx. No interval acute intra hemorrhage is appreciated this time. There remains no mass effect. BRAIN: Diffuse cerebral atrophy chronic microangiopathy are reiterated as well as small left basal ganglia/ external capsule chronic lacune. No interval cortical edema is identified. There is no suspicious extra-axial fluid collection identified in the midline brain anatomy is stable including the posterior fossa contents. VENTRICLES: Unremarkable. No hydrocephalus. CALVARIUM: Unremarkable. PARANASAL SINUSES: Extensive sinusitis is again seen affecting the bilateral ethmoid sinuses predominantly but also mildly affecting bilateral frontal and maxillary as well as left sphenoid sinuses. Yes MASTOID AIR CELLS: Unremarkable as visualized. No inflammatory changes. OTHER FINDINGS: Limited left parietal scalp edema noted once again. IMPRESSION: Apparent stabilization of trace falcine subdural hematoma, which appears slightly thinner in overall volume in the interval. No additional separate intracranial hemorrhage identified throughout. Reiterated age related neuro degenerative changes are appreciated.
--- NOTE | 2017-08-09 07:12 | CON ---
DATE: 08/08/2017 This is an 87-year-old demented lady who apparently fell this morning striking her occiput. Patient is, as best could be told, at her mental status baseline. CT of the brain was done, which was read by the radiologist as a thin subdural overlying the tentorium. I do not appreciate this at all. To me, this is a negative CAT scan and there is no neurosurgical involvement required. Rip Altman MD
[2017-08-09 08:31] VITALS: RESP 20; TEMP 97.5
--- NOTE | 2017-08-09 08:35 | CARD ---
APPROVED REPORT EKG Measurement Heart [id number] VA 160P-6 [id number] <Conclusion> Sinus rhythm with occasional premature ventricular complexes Left anterior fascicular block Abnormal ECG
--- NOTE | 2017-08-09 08:42 | PQF GENQUE ---
This form is a permanent part of the medical record 08/09/17 Dr. Ross, Documentation of a history of Alzheimer Disease and Dementia. Documentation that the patient is confused, disoriented, agitated, trying to get OOB. Patient is on 1:1 sitter and Ativan given for agitation. Would you please clarify the Type of Dementia With or Without Behavioral Disturbance if known. Clarification of your documentation is requested to better reflect the severity of illness and intensity of treatment of your patient. 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 Present On Admission (POA) Indicator: [] Present at the time of admission [] Not present at the time of admission [] Clinically Undetermined In responding to this query, please exercise your independent professional judgment. The fact that a question is asked does not imply that any particular answer is desired or expected. Thank you for your clarification on this documentation. If you have any questions please call:ext [phone] * Thank you, Jamia Henderson RN CD[facility]
--- NOTE | 2017-08-09 08:45 | CP.PCM.DIS ---
Provider - Provider Date of Admission: 08/08/17 13:12 Attending physician: Zane Rosario MD Time Spent in preparation of Discharge (in minutes): 30 Diagnosis - Discharge Diagnosis (1) Dementia Status: Acute (2) Fall Status: Acute (3) Subdural hematoma Status: Acute (4) Abrasion Status: Acute (5) DVT prophylaxis Status: Acute Priority: Medium (6) Fall in elderly patient Status: Acute Hospital Course - Lab Results Lab Results: Most Recent Lab Values WBC 7.1 K/uL (4.8-10.8) 08/08/17 13:05 RBC 3.97 Mil/uL (3.80-5.20) 08/08/17 13:05 Hgb 12.1 g/dL (12.0-16.0) 08/08/17 13:05 Hct 37.0 % (34.0-47.0) 08/08/17 13:05 MCV 93.2 fl (81.0-99.0) 08/08/17 13:05 MCH 30.4 pg (27.0-31.0) 08/08/17 13:05 MCHC 32.6 g/dL (33.0-37.0) L 08/08/17 13:05 RDW 15.1 % (11.5-14.5) H 08/08/17 13:05 Plt Count 169 K/uL (130-400) 08/08/17 13:05 MPV 8.9 fl (7.2-11.7) 08/08/17 13:05 Neut % (Auto) 67.8 % (50.0-75.0) 08/08/17 13:05 Lymph % (Auto) 21.6 % (20.0-40.0) 08/08/17 13:05 [place] % (Auto) 9.4 % (0.0-10.0) 08/08/17 13:05 Eos % (Auto) 1.0 % (0.0-4.0) 08/08/17 13:05 Baso % (Auto) 0.2 % (0.0-2.0) 08/08/17 13:05 Neut # 4.8 K/uL (1.8-7.0) 08/08/17 13:05 Lymph # 1.5 K/uL (1.0-4.3) 08/08/17 13:05 [place] # 0.7 K/uL (0.0-0.8) 08/08/17 13:05 Eos # 0.1 K/uL (0.0-0.7) 08/08/17 13:05 Baso # 0.0 K/uL (0.0-0.2) 08/08/17 13:05 PT 11.1 Seconds (9.8-13.1) 08/08/17 13:05 INR 1.0 (0.9-1.2) 08/08/17 13:05 APTT 28.3 Seconds (25.6-37.1) 08/08/17 13:05 Sodium 140 mmol/l (132-148) 08/08/17 13:05 Potassium 4.5 MMOL/L (3.6-5.0) 08/08/17 13:05 Chloride 105 mmol/L (98-107) 08/08/17 13:05 Carbon Dioxide 26 mmol/L (22-30) 08/08/17 13:05 Anion Gap 14 (10-20) 08/08/17 13:05 BUN 37 mg/dl (7-17) H 08/08/17 13:05 Creatinine 1.4 mg/dl (0.7-1.2) H 08/08/17 13:05 Est GFR ( Amer) 43 08/08/17 13:05 Est GFR (Non-Af Amer) 35 08/08/17 13:05 Random Glucose 97 mg/dL (65-105) 08/08/17 13:05 Calcium 10.1 mg/dL (8.4-10.2) 08/08/17 13:05 Total Bilirubin 0.4 mg/dl (0.2-1.3) 08/08/17 13:05 AST 26 U/L (14-36) 08/08/17 13:05 ALT 28 U/L (9-52) 08/08/17 13:05 Alkaline Phosphatase 93 U/L (38-126) 08/08/17 13:05 Total Protein 7.1 G/DL (6.3-8.2) 08/08/17 13:05 Albumin 3.6 g/dL (3.5-5.0) 08/08/17 13:05 Globulin 3.5 gm/dL (2.2-3.9) 08/08/17 13:05 Albumin/Globulin Ratio 1.0 (1.0-2.1) 08/08/17 13:05 Urine Color Yellow (YELLOW) 08/08/17 12:51 Urine Clarity Slighty-cloudy (Clear) 08/08/17 12:51 Urine pH 6.0 (5.0-8.0) 08/08/17 12:51 Ur Specific [place] 1.014 (1.003-1.030) 08/08/17 12:51 Urine Protein Negative mg/dL (NEGATIVE) 08/08/17 12:51 Urine Glucose (UA) Neg mg/dL (Normal) 08/08/17 12:51 Urine Ketones Negative mg/dL (NEGATIVE) 08/08/17 12:51 Urine Blood Negative (NEGATIVE) 08/08/17 12:51 Urine Nitrate Negative (NEGATIVE) 08/08/17 12:51 Urine Bilirubin Negative (NEGATIVE) 08/08/17 12:51 Urine Urobilinogen 0.2-1.0 mg/dL (0.2-1.0) 08/08/17 12:51 Ur Leukocyte Esterase Trace Edy/uL (Negative) 08/08/17 12:51 Urine RBC (Auto) 3 /hpf (0-3) 08/08/17 12:51 Urine Microscopic WBC 3 /hpf (0-5) 08/08/17 12:51 Ur Squamous Epith Cells < 1 /hpf (0-5) 08/08/17 12:51 Urine Bacteria Occ (<OCC) H 08/08/17 12:51 Blood Type A POSITIVE 08/08/17 13:05 Antibody Screen Negative 08/08/17 13:05 BBK History Checked No verified bt 08/08/17 13:05 - Hospital Course Hospital Course: confused back to baseline Discharge Exam - Head Exam Head Exam: ATRAUMATIC, NORMAL INSPECTION, NORMOCEPHALIC - Eye Exam Eye Exam: EOMI, Normal appearance, PERRL Pupil Exam: NORMAL ACCOMODATION, PERRL - GI/Abdominal Exam GI & Abdominal Exam: Normal Bowel Sounds - Rectal Exam Rectal Exam: NORMAL INSPECTION - Neurological Exam Neurological exam: Alert, CN II-XII Intact, Reflexes Normal - Psychiatric Exam Psychiatric exam: Agitated - Skin Skin Exam: Dry, Intact, Normal Color, Warm Discharge Plan - Follow Up Plan Condition: STABLE Disposition: HOME/ ROUTINE Additional Instructions: discharge to [facility]
[2017-08-09 12:04] VITALS: BP 123/57; PULSE 80; O2SAT 94
== END 2017-08-09 14:13 ==
LOC: H.ER 09:44 → INTOOBSV 13:12 → H.ERHOLD 13:12 → H.TEL 15:17
PROVIDERS: ADMIT Internal Medicine Pulmonary Disease; ATTEND Internal Medicine Pulmonary Disease
DX: S06.5X0A Traumatic subdural hemorrhage without loss of consciousness, initial encounter (principal); W18.30XA Fall on same level, unspecified, initial encounter; Y93.01 Activity, walking, marching and hiking; Y92.9 Unspecified place or not applicable; G30.9 Alzheimer's disease, unspecified; F02.80 Dementia in other diseases classified elsewhere, unspecified severity, without behavioral disturbance, psychotic disturbance, mood disturbance, and anxiety; Z87.891 Personal history of nicotine dependence; I10 Essential (primary) hypertension; F32.9 Major depressive disorder, single episode, unspecified; M19.90 Unspecified osteoarthritis, unspecified site
CPT/HCPCS: 70450; 71045; 72125; 80053; 81003; 85025; 85610; 85730; 86850; 86900; 93005; 96372; 96374; 99285; G0378; J2060

== ENCOUNTER 2017-08-09 22:46 | Emergency (ER) | payer MEDICARE, MEDICAID ==
--- NOTE | 2017-08-09 23:51 | ED PDOC ---
HPI: Head Injury Time Seen by Provider: 08/09/17 22:57 Chief Complaint (Nursing): Trauma Chief Complaint (Provider): Fall-Related Injury History Per: Other (long-term) History/Exam Limitations: clinical condition (dementia) Patient States: Fell Striking Head (patient's roommate states) Additional Complaint(s): 87 year old female brought in by EMS from senior living presents to ED with complaints of a head injury and has a past medical history of HTN, Alzheimer's, and dementia. Patient is unable to give history due to clinical condition. Staff notes that they found the patient on the floor, and the roommate reported that she had fallen and hit her head. As per records, patient was just discharged from the hospital after a head injury sustained from a fall yesterday , and has a small subdural hematoma. PCP: Dr. Trinidad Casanova Past Medical History Reviewed: Historical Data, Nursing Documentation, Vital Signs Vital Signs: Last Vital Signs Temp 99.2 F 08/09/17 22:51 Pulse 86 08/09/17 22:51 Resp 18 08/09/17 22:51 BP 110/54 L 08/09/17 22:51 Pulse Ox 95 08/09/17 22:51 - Medical History PMH: Alzheimer's Disease, Arthritis, Dementia, Depression, HTN Denies: Anemia, Anxiety, Bipolar Disorder, Crohn's Disease, Diverticulitis, Fractures, Gastritis, Gall Bladder Disease, HIV, Hyperthyroidism, Hypothyroidism , Kidney Stones, Migraine, Osteoporosis, Pancreatitis, Paranoia, Post Traumatic Stress Disorder, Chronic Kidney Disease, Rheumatoid Arthritis, Schizophrenia, Seizures, Sickle Cell Disease, Sexually Transmitted Disease, TIA - Surgical History Surgical History: Denies: Appendectomy, CABG, Carotid Endarterectomy, Cholecystectomy, Coronary Stent, Tonsillectomy - Family History Family History: States: Unknown Family Hx - Living Arrangements Living Arrangements: Residential/Assist [facility] - Social History Current smoker - smoking cessation education provided: No Ex-Smoker (has not smoked in the last 12 months): Yes Alcohol: None Drugs: Denies - Home Medications Home Medications: Ambulatory Orders Medication Instructions Recorded Allopurinol [Zyloprim] 100 mg PO BID 11/15/16 Donepezil [Aricept] 10 mg PO HS 11/15/16 Ergocalciferol (Vitamin D2) 50,000 unit PO SUN 11/15/16 [Vitamin D2] Ferrous Sulfate [Feosol] 325 mg PO BID 11/15/16 Galantamine HBr [Galantamine ER] 16 mg PO DAILY 11/15/16 Lisinopril [Zestril] 2.5 mg PO DAILY 11/15/16 Memantine HCl [Namenda Xr] 28 mg PO DAILY 11/15/16 Sertraline [Zoloft] 50 mg PO DAILY 11/15/16 Sevelamer [Renagel] 400 mg PO BID 12/26/16 - Allergies Allergies/Adverse Reactions: Allergies Allergy/AdvReac Type Severity Reaction Status Date / Time No Known Allergies Allergy Verified 08/09/17 22:51 Review of Systems Review Of Systems: ROS cannot be obtained secondary to pt's inabilty to answer questions. (patient has dementia) Musculoskeletal: Positive for: Other ((+) head injury) Physical Exam - Reviewed Nursing Documentation Reviewed: Yes Vital Signs Reviewed: Yes - Physical Exam Appears: Positive for: Uncomfortable (cries in pain when touched anywhere on body), In Acute Distress (painful distress) Head Exam: Positive for: NORMOCEPHALIC (tenderness to palpation occiput) Skin: Positive for: Warm, Dry Eye Exam: Positive for: EOMI, PERRL ENT: Positive for: Pharynx Is (clear) Neck: Positive for: Painless ROM, Supple Cardiovascular/Chest: Positive for: Regular Rate, Rhythm. Negative for: Murmur Respiratory: Positive for: Normal Breath Sounds. Negative for: Respiratory Distress Gastrointestinal/Abdominal: Positive for: Soft. Negative for: Tenderness Back: Positive for: Normal Inspection. Negative for: Muscle Spasm Extremity: Negative for: Deformity, Swelling Lymphatic: Negative for: Adenopathy Neurologic/Psych: Positive for: Alert, Mood/Affect (anxious affect), Other (Pt intermittently yelling nonsensically). Negative for: Oriented, Motor/Sensory Deficits - ECG O2 Sat by Pulse Oximetry: 95 (RA) Pulse Ox Interpretation: Normal Medical Decision Making Medical Decision Makin Initial impression: head injury Initial plan: * CT HEAD * Acetaminophen 975mg PO * Re-eval Scribe Attestation: Documented by Adore Mancera acting as a scribe for Trudy Chavez MD. Scribe Attestation: All medical record entries made by the Scribe were at my direction and personally dictated by me. I have reviewed the chart and agree that the record accurately reflects my personal performance of the history, physical exam, medical decision making, and the department course for this patient. I have also personally directed, reviewed, and agree with the discharge instructions and disposition. Disposition - Clinical Impression Clinical Impression: Fall, Dementia, Head injury - Patient ED Disposition Is Patient to be Admitted: Transfer of Care - Disposition Disposition: Transfer of Care Disposition Time: 00:00 Condition: STABLE Patient Signed Over To: Richard Holman Handoff Comments: Pending CT
--- NOTE | 2017-08-10 00:16 | ED PDOC ---
- ECG O2 Sat by Pulse Oximetry: 95 (RA) Medical Decision Making Medical Decision Makin Patient signed out to me from Dr. Bryant pending CT and final ED disposition. 0032 CT FINDINGS: Brain: There is dilatation of sulci gyri and ventricles. There is no midline shift. There is decreased attenuation in periventricular white matter. 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 There are no focal masses. There is subdural hematoma with hemorrhage seen along the falx. There is been interval decrease in size of the subdural hematoma. There are no new hemorrhages. [place] differentiation is visualized. Ventricles: See above Bones: Cranial vault is intact. Soft tissues: There is left posterior parietal scalp swelling Sinuses: There is ethmoid, sphenoid and frontal sinusitis Ears and mastoids: Middle ears and mastoids are unremarkable. Orbits: Orbital contents are unremarkable. IMPRESSION: Interval decrease in size of a small subdural hematoma along the falx: new intracranial abnormality; sinusitis Patient is stable for discharge home. Dx: fall, head injury Scribe Attestation: Documented by Adore Mancera acting as a scribe for Richard Holman MD. Scribe Attestation: All medical record entries made by the Scribe were at my direction and personally dictated by me. I have reviewed the chart and agree that the record accurately reflects my personal performance of the history, physical exam, medical decision making, and the department course for this patient. I have also personally directed, reviewed, and agree with the discharge instructions and disposition. Disposition - Clinical Impression Clinical Impression: Fall, Dementia, Head injury - POA Present On Arrival: Falls Or Trauma - Disposition Disposition: Routine/Home Disposition Time: 00:33 Condition: STABLE Instructions: Fall Prevention for Older Adults (ED), Head Injury (ED)
--- NOTE | 2017-08-10 00:18 | CT ---
EXAM: CT Head Without Intravenous Contrast EXAM DATE/TIME: 08/09/2017 11:05 PM CLINICAL HISTORY: 87 years old, female; Injury or trauma; Fall; Initial encounter; Concussion / head injury; Consciousness not specified; Injury details: Recurrent fall, patient was scanned yesterday, twice, 4-5 hours apart. 08-08-2017, ; additional info: Recurrent fall and head injury TECHNIQUE: Axial computed tomography images of the head/brain without intravenous contrast. All CT scans at this facility use one or more dose reduction techniques, viz.: automated exposure control; ma/kV adjustment per patient size (including targeted exams where dose is matched to indication; i.e. head); or iterative reconstruction technique. Coronal and sagittal reformatted images were created and reviewed. COMPARISON: CT - HEAD W/O CONTRAST 2017-08-08 17:15 FINDINGS: Brain: There is dilatation of sulci gyri and ventricles. There is no midline shift. There is decreased attenuation in periventricular white matter. 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 There are no focal masses. There is subdural hematoma with hemorrhage seen along the falx. There is been interval decrease in size of the subdural hematoma. There are no new hemorrhages. Barron-white differentiation is visualized. Ventricles: See above Bones: Cranial vault is intact. Soft tissues: There is left posterior parietal scalp swelling Sinuses: There is ethmoid, sphenoid and frontal sinusitis Ears and mastoids: Middle ears and mastoids are unremarkable. Orbits: Orbital contents are unremarkable. IMPRESSION: Interval decrease in size of a small subdural hematoma along the falx: new intracranial abnormality; sinusitis Additional nonemergent findings as described above.
[2017-08-10 00:48] VITALS: BP 121/73; PULSE 84; RESP 16; TEMP 98.1
[2017-08-10 03:31] VITALS: O2SAT 95
== END 2017-08-10 02:19 ==
LOC: H.ER 22:46
DX: S09.90XA Unspecified injury of head, initial encounter (principal); W19.XXXA Unspecified fall, initial encounter; Y92.122 Bedroom in nursing home as the place of occurrence of the external cause; F32.9 Major depressive disorder, single episode, unspecified; F02.80 Dementia in other diseases classified elsewhere, unspecified severity, without behavioral disturbance, psychotic disturbance, mood disturbance, and anxiety; G30.9 Alzheimer's disease, unspecified; I10 Essential (primary) hypertension; J32.9 Chronic sinusitis, unspecified